=== PATIENT | male | born 1960 | race Caucasian/White ===

== ENCOUNTER → 2020-04-24 10:10 | Outpatient (BNVA) | payer MEDICARE, SELFPAY | PROVIDERS: PCP Family Medicine; Referring Provider Family Medicine; Visit Provider Urology | DX: Z12.5 Encounter for screening for malignant neoplasm of prostate (principal); N40.1 Benign prostatic hyperplasia with lower urinary tract symptoms; N13.8 Other obstructive and reflux uropathy; N50.819 Testicular pain, unspecified | CPT/HCPCS: 81003; G0103 ==

== ENCOUNTER → 2020-10-24 10:37 | Outpatient (BNVA) | payer MEDICARE, SELFPAY | PROVIDERS: PCP Family Medicine; Visit Provider Nurse Practitioner Family | DX: N13.8 Other obstructive and reflux uropathy (principal); N40.1 Benign prostatic hyperplasia with lower urinary tract symptoms | CPT/HCPCS: 81003 ==

== ENCOUNTER → 2022-04-22 14:00 | Outpatient (BNVA) | payer MEDICARE, SELFPAY | PROVIDERS: PCP Family Medicine; Visit Provider Podiatrist Foot & Ankle Surgery | DX: Q82.8 Other specified congenital malformations of skin (principal); M20.42 Other hammer toe(s) (acquired), left foot; L97.521 Non-pressure chronic ulcer of other part of left foot limited to breakdown of skin; M77.42 Metatarsalgia, left foot; M21.612 Bunion of left foot | CPT/HCPCS: 17110; 73630; 99204 ==

== ENCOUNTER → 2022-08-04 09:41 | Outpatient (BNVA) | payer MEDICARE, SELFPAY | PROVIDERS: PCP Family Medicine; Visit Provider Podiatrist Foot & Ankle Surgery | DX: Q82.8 Other specified congenital malformations of skin (principal); M21.612 Bunion of left foot; M20.42 Other hammer toe(s) (acquired), left foot; M77.42 Metatarsalgia, left foot | CPT/HCPCS: 11721; 17110; 99213 ==